=== PATIENT | female | born 1955 ===

== ENCOUNTER 2017-01-24 20:20 | Emergency (ER) | payer OTHER ==
[~2017-01-24] VITALS: Ht 157.5 cm; Wt 72.6 kg
[2017-01-24] MEDS ORDERED: ACYCLOVIR 400 MG TABLET PO ONE (21:15)
[2017-01-24] MEDS ORDERED: predniSONE 20 MG TABLET PO ONE (21:15)
[2017-01-24 21:45] LABS: *BILIRUBIN,URIN NEGATIVE (NEGATIVE); *BLOOD, URINE Trace-lysed (NEGATIVE); *CLARITY,URINE CLEAR (CLEAR); *COLOR,URINE YELLOW (YELLOW); *KETONES,URINE NEGATIVE (NEGATIVE); *PROTEIN,URINE NEGATIVE (NEGATIVE); *UROBILINOGEN,URINE 0.2 E.U./dl (NORMAL); LEUKOCYTE ESTERASE ,URINE 1+ (NEGATIVE); NITRITE, URINE NEGATIVE (NEGATIVE); UGLUCOSE NEGATIVE (NEGATIVE)
[2017-01-24] MEDS ORDERED: predniSONE 10 MG TABLET ONE (21:46)
[2017-01-24] MEDS ORDERED: predniSONE 50 MG TABLET ONE (21:46)
[2017-01-24] MEDS ORDERED: ACYCLOVIR 400 MG TABLET ONE (21:47)
[2017-01-24 22:00] LABS: BACTERIA,URINE FEW /HPF (NONE SEEN); RBC,URINE 0-3 /HPF (0-3); SQUAMOUS EPITHELIAL CELL,UR FEW /HPF (NONE SEEN)
--- NOTE | 2017-01-24 22:24 | NUR ---
Patient discharged to home in stable conditon. Written and verbal after care instructions given. Patient verbalizes understanding of instructions. Ambulated from ER with stable gait. All belongings with patient.
[2017-01-24 22:27] VITALS: BP 129/72
== END 2017-01-24 22:28 | disposition home or self-care (01) ==
LOC: ER 20:20
DX: B02.9 Zoster without complications (principal); K21.9 Gastro-esophageal reflux disease without esophagitis
CPT/HCPCS: A4663; J7512